=== PATIENT | male | born 1950 | race Two or more races ===

== ENCOUNTER 2018-01-10 07:10 | Day surgery (SDC) | payer MEDICARE, BC ==
[~2018-01-10] VITALS: Ht 172.7 cm; Wt 112.6 kg
[~2018-01-10 07:10] MED LIST: HEPARIN 1,000 UNITS/ML, 10ML ONE
[2018-01-10] MEDS ORDERED: SODIUM CHLORIDE 0.9% 1,000 ML IV SCH (07:35)
[2018-01-10 08:10] VITALS: BP 170/79
[2018-01-10] MEDS ORDERED: HYDRALAZINE PO (08:10)
[2018-01-10] MEDS ORDERED: OMEG1CAP2 PO (08:10)
[2018-01-10] MEDS ORDERED: FURO20TA3 PO (08:10)
[2018-01-10] MEDS ORDERED: INSU100V8 SQ (08:10)
[2018-01-10] MEDS ORDERED: ALLO300T PO (08:10)
[2018-01-10] MEDS ORDERED: LINA5TAB PO (08:10)
[2018-01-10] MEDS ORDERED: SODI325T PO (08:10)
[2018-01-10] MEDS ORDERED: LISI40TA PO (08:10)
[2018-01-10] MEDS ORDERED: ATOR40TA78 PO (08:19)
[2018-01-10] MEDS ORDERED: PRAZ1CAP2 PO (08:19)
[2018-01-10] MEDS ORDERED: PROPOFOL 10 MG/ML, 20ML ONE (09:07)
[2018-01-10] MEDS ORDERED: MIDAZOLAM 1 MG/ML, 2ML ONE (09:07)
[2018-01-10] MEDS ORDERED: METOCLOPRAMIDE 5 MG/ML, 2ML ONE (09:07)
[2018-01-10] MEDS ORDERED: LIDOCAINE-MPF 2% ,5ML ONE (09:07)
[2018-01-10] MEDS ORDERED: DEXAMETHASONE 4 MG/ML, 1ML ONE (09:07)
[2018-01-10] MEDS ORDERED: FENTANYL PF 100 MCG/2ML ONE ×2 (09:07→10:05)
[2018-01-10] MEDS ORDERED: ONDANSETRON 2MG/ML, 2ML ONE (09:23)
[2018-01-10] MEDS ORDERED: SUCCINYLCHOLINE 20 MG/ML, 10ML ONE (09:24)
[2018-01-10] MEDS ORDERED: SODIUM CHLORIDE 0.9% PF 10ML ONE (09:33)
[2018-01-10] MEDS ORDERED: EPHEDRINE 50 MG/ML, 1ML ONE (09:33)
[2018-01-10] MEDS ORDERED: OXYcodone 5 MG/5 ML ORAL.SOL UDC PO PRN (10:00)
[2018-01-10] MEDS ORDERED: LABETALOL 5MG/ML, 20ML IV PRN (10:00)
[2018-01-10] MEDS ORDERED: MIDAZOLAM 1 MG/ML, 2ML IV PRN (10:00)
[2018-01-10] MEDS ORDERED: ONDANSETRON 2MG/ML, 2ML IVPush PRN (10:00)
[2018-01-10] MEDS ORDERED: HYDROmorphone 1 MG/ML, 1ML IV PRN (10:00)
[2018-01-10] MEDS ORDERED: MEPERIDINE/PF 25MG/0.5ML IVPush PRN (10:00)
[2018-01-10] MEDS ORDERED: FENTANYL PF 100 MCG/2ML IV PRN (10:00)
[2018-01-10] MEDS ORDERED: OXYcodone 5 MG/5 ML ORAL.SOL UDC ONE (10:05)
== END 2018-01-10 11:25 | disposition home or self-care (01) ==
LOC: OUT 07:10
PROVIDERS: ATTEND Surgery Vascular Surgery
DX: E11.22 Type 2 diabetes mellitus with diabetic chronic kidney disease (principal); I12.0 Hypertensive chronic kidney disease with stage 5 chronic kidney disease or end stage renal disease; N18.6 End stage renal disease; M10.9 Gout, unspecified; Z79.4 Long term (current) use of insulin; Z79.899 Other long term (current) drug therapy
CPT/HCPCS: 36415; 36821; 80047; 82962; 93005; J0330; J1100; J1644; J2250; J2405; J2704; J2765; J3010; J3490; J7030